=== PATIENT | female | born 1980 | race Caucasian/White ===

== ENCOUNTER 2020-03-03 15:26 | Emergency (ER) | payer OTHER ==
[~2020-03-03] VITALS: Ht 172.7 cm; Wt 104.3 kg
[2020-03-03 16:00] VITALS: BP_SYST 119
--- NOTE | 2020-03-03 17:22 | NUR ---
PT IN AMBULANCE TRIAGE IN [facility]
[2020-03-03] MEDS ORDERED: ONDANSETRON HCL 4 MG/2 ML VIAL IVP ONE (18:45)
[2020-03-03] MEDS ORDERED: MORPHINE 4 MG/ML INJ. SYRINGE IVP ONE ×2 (18:45→20:45)
[2020-03-03 19:09] LABS: BASOPHILS # (AUTO) 0.1 K/uL (0.0-0.2); BASOPHILS % (AUTO) 0.4 % (0.0-2.0); EOSINOPHILS % (AUTO) 0.3 % (0.0-4.0); HEMOGLOBIN 14.9 g/dL (12.0-16.0); LYMPHOCYTES # (AUTO) 1.9 K/uL (1.0-5.5); LYMPHOCYTES % (AUTO) 14.5 % (20.5-51.5); MEAN CORPUSCULAR HEMOGLOBIN 34 pg (27-31); MEAN CORPUSCULAR HGB CONC 35 % (32-36); MEAN CORPUSCULAR VOLUME 99 fL (79.0-98.0); MONOCYTES % (AUTO) 7.2 % (1.7-9.3); NEUTROPHILS # (AUTO) 10.3 K/uL (1.8-7.7); NEUTROPHILS % (AUTO) 77.6 % (40.0-70.0); PLATELET COUNT (AUTO) 291 K/uL (130-430); RED BLOOD CELL COUNT(AUTO) 4.37 MIL/uL (4.2-6.2); RED CELL DISTRIBUTION WIDTH 13.6 % (9.0-15.0); WHITE BLOOD COUNT (AUTO) 13.2 K/uL (4.8-10.8)
[2020-03-03 19:20] LABS: CALCIUM 9.6 mg/dL (8.4-11.0); CREATININE 0.93 mg/dL (0.55-1.30); POTASSIUM 3.4 mmol/L (3.5-5.1)
[2020-03-03 19:26] LABS: ALBUMIN 4.1 g/dL (3.4-4.8); TOTAL BILIRUBIN 0.4 mg/dL (0.0-1.0)
[2020-03-03 19:27] LABS: PROTHROMBIN TIME 9.9 SECS (9.5-12.5)
[2020-03-03] MEDS ORDERED: HYDROmorphone 1 MG INJ. 1 MG/ML AMPUL IVP ONE (20:15)
[2020-03-03] MEDS ORDERED: HYDROmorphone 1 MG INJ. 1 MG/ML AMPUL IM ONE (20:30)
--- NOTE | 2020-03-03 20:45 | NUR ---
Patient to ER bed 1 to gown for evaluation. Side rails up.
--- NOTE | 2020-03-03 20:46 | NUR ---
Patient BIB by ALS/EMS. C/O fall x today. Per reported, patient fell of a house around 1430 PM, Given Morphin 4 mg IM at the scene by ALS/EMT, Patient waited in EMS before place in bed 1, CT scan/ and X-ray before place on bed 1. A/O,X4, right lower leg pain, pain rate 10/10. place on playground monitor before given IV medications.
--- NOTE | 2020-03-03 20:48 | NUR ---
# 22 gauge angiocath placed to RAC. Use of asceptic technique. Opsite placed over site. Blood return noted. Blood for lab drawn from site. Flushed with 10 cc of normal saline. No evidence of infiltration noted. Patient tolerated well.
[2020-03-03] MEDS ORDERED: ONDANSETRON HCL 4 MG/2 ML VIAL ONE (20:57)
[2020-03-03] MEDS ORDERED: MORPHINE 4 MG/ML INJ. SYRINGE ONE (22:16)
[2020-03-03] MEDS ORDERED: BACITRACIN 1 GM OINT TP ONE (22:16)
--- NOTE | 2020-03-03 22:22 | NUR ---
Cleaned facial abrasion wound with NSS and applied Bacitricin.
--- NOTE | 2020-03-03 22:48 | NUR ---
Patient given written and verbal discharge instructions and verbalizes understanding. ER MD discussed with patient the results and treatment provided. Patient in stable condition. ID arm band removed. IV catheter removed intact and dressing applied, no active bleeding. Rx of Percucet given. Patient educated on pain management and to follow up with PMD. Pain Scale 4/10 Opportunity for questions provided and answered. Medication side effect fact sheet provided.
[2020-03-03 22:49] VITALS: BP_SYST 145
== END 2020-03-03 22:48 | disposition home or self-care (01) ==
LOC: SED 15:26
DX: S82.201A Unspecified fracture of shaft of right tibia, initial encounter for closed fracture (principal); Z88.0 Allergy status to penicillin; Z88.5 Allergy status to narcotic agent; Z88.6 Allergy status to analgesic agent; V80.010A Animal-rider injured by fall from or being thrown from horse in noncollision accident, initial encounter; Y93.89 Activity, other specified; Y92.89 Other specified places as the place of occurrence of the external cause; Y99.8 Other external cause status
CPT/HCPCS: 29505; 36415; 70450; 70486; 72125; 73590; 73610; 76376; 80053; 85025; 85610; 85730; 96374; 96375; 96376; 99285; J2270; J2405; J1170